=== PATIENT | male | born 1975 | race Caucasian/White ===

== ENCOUNTER 2025-04-22 08:07 | Outpatient (CLI) | payer MEDICARE, OTHER, MEDICAID, SELFPAY ==
--- OUTSIDE RECORDS SUMMARY | 2025-04-22 08:17 | XMS_ITS | Patient Health Record ---
Author Organization [facility] Address [address] [address] Care Team Providers Care Waxer Floor Name Role Phone Deangelo Marino Primary Care Provider Reason For Referral No Information Medications Medication SIG (Take, Route, Frequency, Duration) Notes Start Date End Date Status Folic Acid 1MG PO DAILY [facility] Acti ve Phenytoin Sodium Extended 100MG PO 3 TABS PO @ HS [facility] Active Pataday 1DROP OP Q 6AM FOR ITCHING [facility] Active Tylenol 325MG PO 1-2XD [facility] Activ e Bisacodyl 10MG RE PRN [facility] Acti ve Calcium Carbonate 500MG PO TID [facility] Active Lactulose 30ML PO BID [facility] Acti ve Divalproex Sodium 125MG PO 6CAPS PO BID [facility] Active ASPIRIN 81 81MG OR DAILY [facility] Act sophia Multivitamins 1CAP PO DAILY [facility] Active Problems Problem Type SNOMED Code ICD Code Onset Dates Problem Status W/U Status Risk Notes Problem 25424514 Mental retardation (F79) Active confirmed Problem 79556468 Convulsions (R56.9) Active confirmed Problem [id number] Functional quadriplegia (R53.2) Active confirmed Problem 79107907 Abnormality of gait (R26.9) Active confirmed Problem 75334702 Head injury (S09.90XA) Active confirmed Problem 965439706 Intractable epilepsy (G40.919) Active confirmed Plan Of Treatment No Information Insurance Providers Payer Name Payer Address Payer Phone Subscriber Number Group Number Insured Name Patient Relationship to Insured Coverage Start Date Coverage End Date MEDICARE PART AB [address] [place] [id number] [phone] [id number] REEMA FERNANDO Self - patient is the insured [facility] [address] [place], [place] [id number] REEMA FERNANDO Self - patient is the insured [place] [address] [address] [place], [place] [id number] REEMA FERNANDO Self - patient is the insured
--- OUTSIDE RECORDS SUMMARY | 2025-04-22 08:17 | XMS_ITS | Clinical Summary ---
Author Organization [facility] Address [address] [place] [address] Phone Care Team Providers Care Medical Insurance Biller Name Role Phone Ava Valdez APRN, MEDICAL GENETICS DIRECTOR Unavailable [phone] Alpesh Levy MD Primary Care Provider [phone] Jayleen Earl DO Unavailable Allergies Active Allergy Reactions Criticality Noted Date Comments Hydrocodone-Acetaminophen Unknown 10/17/2019 Medications cilostazol (PLETAL) 100 MG Tablet 2 times daily. 0 Active folic acid (FOLVITE) 1 MG Tablet Take 1 mg by mouth daily. Active aspirin 81 MG Chewable Tablet Take 81 mg by mouth daily. Active lactulose (CHRONULAC) 10 GM/15ML Solution Take 45 mL by mouth 2 times daily. Active divalproex (DEPAKOTE SPRINKLE) 125 MG Capsule Delayed Release Sprinkle Take by mouth. 500mg in the morning and 750mg in the evening. Active Multiple Vitamin (DAILY ABE PO) Take by mouth. Active acetaminophen (TYLENOL) 325 MG Tablet Take 325 mg by mouth every 4 hours as needed. Active diphenhydrAMINE HCl (DIPHENHYDRAMINE COUGH PO) Take by mouth. Active Misc. Devices MiscIndications:Q uadriplegia,Cereb ral palsy, unspecified type (HCC),Mild intellectual disability Power mobility device 1 Each 4 Active bacitracin-polymy shahla (POLYSPORIN) [id number] UNIT/GM Ointment APPLY TWICE DAILY TO THE AFFECTED AREA 4 Active Active Problems Problem Noted Date Diagnosed Date Elevated LFTs 07/05/2022 Cerebral palsy 10/17/2019 Mild intellectual disability 10/17/2019 Quadriplegia 10/17/2019 Nonintractable epilepsy without status epileptic us 10/17/2019 PVD (peripheral vascular disease) 10/17/2019 Gastroesophageal reflux disease without esophagi tis 10/17/2019 Hyperammonemia 10/17/2019 Resolved Problems Problem Noted Date Diagnosed Date Resolved Date WALTER (acute kidney injury) 06/22/2021 UTI (urinary tract infection) 06/22/2021 12/10/2021 Severe sepsis with acute organ dysfunction 06/22/2021 12/10/2021 Dehydration 06/22/2021 12/10/2021 Encounters Date Type Department Care Team Description [facility] [place] [address] [place] [address] Alpesh Levy MD Form Completion 03/25/20[facility] [place] [address] [place] [address] Alpesh Levy MD Need Order from Last 3 Months Immunizations Immunization Administration Dates Next Due Covid-19, Mrna, Lnp-s, Pf, 3 0 Mcg/0.3 Ml Dose ([employer]) 12/08/2020,11/17/2020 Influenza Vaccine greater than 3 yrs 08/05/2024 Influenza Vaccine, Quadrivalent, PF 07/20/2022,1 ,07/14/2020 Influenza Vaccine,unspecified Formulation 2022 Influenza Virus Vaccine, Whole Virus 07/24/1999 Influenza,Split Virus,Trivalent,Injectable,PF 06/18/2024 Pneumococcal Vaccine - 13 Valent 02/01/2018 Pneumococcal conjugate PCV20 , polysaccharide QHA963 conjugate, adjuvant, PF 12/24/2024 TD VACCINE 02/17/2004 TDAP Vaccine 02/17/2004 Td (Adult) 11/11/2015 Tuberculin Skin Test; Purifi ed Protein Derivative Solutiol 02/03/2004 Social History Tobacco Use Types Packs/Day Years Used Date Smoking Tobacco: Never Smokeless Tobacco: Never Tobacco Cessation:Counseling Given: No Alcohol Use Standard Drinks/Week Comments Never 0 (1 standard drink = 0.6 oz pur e alcohol) [facility] Utilities Answer Date Recorded In the past 12 months has th e electric, gas, oil, or water company threatened to shut off services in your home? Patient declined 12/24/2024 Social Connection and Isolation Panel Answer Date Recorded In a typical week, how many times do you talk on the phone with family, friends, or neighbors? Patient declined 12/24/2024 How often do you get togethe r with friends or relatives? Patient declined 12/24/2024 How often do you attend catholic or oriental orthodox serv ices? Patient declined 12/24/2024 Do you belong to any clubs o r organizations such as catholic groups, unions, fraternal or athletic groups, or school groups? Patient declined 12/24/2024 How often do you attend meet ings of the clubs or organizations you belong to? Patient declined 12/24/2024 Are you , , di vorced, , never , or living with a partner? Patient declined 12/24/2024 AUDIT-C Answer Date Recorded Q1: How often do you have a drink containing alc ohol? Patient declined 12/24/2024 Q2: How many drinks containi ng alcohol do you have on a typical day when you are drinking? Patient declined 12/24/2024 Q3: How often do you have si x or more drinks on one occasion? Patient declined 12/24/2024 Overall Financial Resource Strain (CARDIA) Answe r Date Recorded How hard is it for you to pa y for the very basics like food, housing, medical care, and heating? Patient declined 12/24/2024 PHQ-2 Answer Date Recorded Total Score - Questions 1-9 0 12/07 [facility] [place] [facility] Occupat ional Health - Occupational Stress Questionnaire Answer Date Recorded Do you feel stress - tense, restless, nervous, or anxious, or unable to sleep at night because your mind is troubled all the time - these days? Patient declined 12/24/2024 Exercise Vital Sign Answer Date Recorde d On average, how many days pe r week do you engage in moderate to strenuous exercise (like a brisk walk)? Patient declined On average, how many minutes do you engage in exercise at this level? Patient declined 12/24/2024 Hunger Vital Sign Answer Date Recorded Within the past 12 months, y ou worried that your food would run out before you got the money to buy more. Patient declined Within the past 12 months, t he food you bought just didn't last and you didn't have money to get more. Patient declined PRAPARE - Transportation Answer Date Re corded In the past 12 months, has l ack of transportation kept you from medical appointments or from getting medications? Patient declined 12/24/2024 In the past 12 months, has l ack of transportation kept you from meetings, work, or from getting things needed for daily living? Patient declined 12/24/2024 Housing Stability Vital Sign Answer Taco e Recorded In the last 12 months, was t here a time when you were not able to pay the mortgage or rent on time? Patient declined 12/25/19 25 Number of Times Moved in the Last Year Not on fi le 12/24/2024 At any time in the past 12 m [facility], were you homeless or living in a [place] care facility (including now)? Patient declined 12/24/2024 Sex and Gender Information Value Date Recorded Sex Assigned at Not on file Legal Sex Male 3:43 PM MUSIC EDUCATOR Gender Identity Not on file Sexual Orientation Not on file Last Filed Vital Signs Vital Sign Reading Time Taken Comments Blood Pressure 126/80 12/30/2024 9:50 AM CDT Pulse 76 12/30/2024 9:50 AM CDT Temperature 36.3 C (97.4 F) 12/30/2024 9:50 AM CDT Respiratory Rate 16 12/30/2024 9:50 AM CDT Oxygen Saturation 93% 12/24/2024 9:02 AM CDT Inhaled Oxygen Concentration - - Weight 93 kg (205 lb) 11/14/2024 4:27 PM MUSIC EDUCATOR Height 185.4 cm (6' 1) 12/24/2024 9:02 AM CDT Body Mass Index 27.05 06/18/2024 9:11 AM CDT Plan of Treatment Upcoming Encounters Date Type Department Care Team (Late st Contact Info) Description 06/25/2025 10:00 AM CDT Office Visit [facility] [place] [address] [place] [address] Alpesh Levy MD [address] [place] [address] 12/29/2025 9:00 AM CDT Office Visit [facility] - [place] [address] [place] [address] Alpesh Levy MD [address] [place] [place], [place] [id number] 12/29/2025 10:00 AM CDT Office Visit [facility] [address] [place] [address] Ava Valdez, HEEL TURNER, MEDICAL GENETICS DIRECTOR [address] [place] [address] Health Maintenance Due Date Last Done Comments Hepatitis B Immunization (1 of 3 - 19+ 3-dose series) 1993 Colonoscopy 2019 Immunochemical Fecal Occult Blood 2019 Zoster Immunization (1 of 2) 2024 Influenza Immunization (#1) 2025 1005/2024, 06/18/2024, 07/26/2023, Additional history exists Td Immunization Every 10 Years (Adults With 1 Tdap) 11/11/2025 11/11/2015, 02/17/2004, 02/17/2004 Cologuard 04/18/2026 04/18/2023 Colorectal Cancer Screening 04/18/2026 Respiratory Syncytial Virus (RSV) Immunization (Adult) (1 - 1-dose 75+ series) 2049 DTaP/Tdap/Td Immunization Discontinued 2015, 02/17/2004, 02/17/2004 Hepatitis C Virus (HCV) Screening Completed 12/21/2023 SARS-COV-2 Immunization Completed 08/05/20 24, 09/09/2021, 12/08/2020, Additional history exists Pneumococcal Immunization (50+ years) Completed 12/24/2024, 02/01/2018 Pneumococcal Immunization Combined Discontinued 12/24/2024, 02/01/2018 Human Papillomavirus (HPV) Immunization Aged Out No longer eligible based on patient's age to complete this topic Meningococcal Immunization (ACWY) Aged Out No longer eligible based on patient's age to complete this topic Rotavirus Immunization Aged Out No lo nger eligible based on patient's age to complete this topic Procedures Procedure Name Priority Date/Time Associated Diagnosis Comments PSA SCREEN 03/11/2025 12:00 AM CDT HEPATITIS C ANTIBODY Routine 12/21/2023 11:47 AM CDT Encounter for hepatitis C screening test for low risk patient COLOGUARD Routine 04/18/2023 5:30 PM CDT Encounter for screening for malignant neoplasm of colon from Last 3 Months or Most Recently Relevant to Health Maintenance Results * PSA SCREEN (03/11/2025 12:00 AM CDT) PSA SCREEN, TOTAL 0.98 SCAN 03/11/2025 us Provider Scan CHEMISTRY ORDERABLES Final Resul t SCAN * HEPATITIS C ANTIBODY (12/21/2023 11:47 AM CDT) hepatitis C antibody 0.1000 <1 S/CO 12/21/2023 11:03 PM CDT [facility] Comment: Signal/Cutoff ratio < 0.79 is Nondetected Signal/Cutoff ratio 0.80-0.99 is Grayzone Signal/Cutoff ratio > 0.99 is Detected Supplemental assays are recommended if signal/cutoff ratio is >/=1.00. Signal/cutoff ratio result >/= 5.00 is 97% predictive of positivity for recombinant immunoblot assay (RIBA) and will be reported to the [place] Department of Public Health as required. Blood Venipuncture / Unknown 12/21/2023 11:47 AM CDT 12/21/2023 11:47 AM CDT us Alpesh Levy MD CHEMISTRY ORDERABLES Helen chai Result [facility] [address] [place] [address], * COLOGUARD (04/18/2023 5:30 PM CDT) Cologuard Negative Negative [facility] Comment: NEGATIVE TEST RESULT. A negative Cologuard result indicates a low likelihood that a colorectal cancer (CRC) or advanced adenoma (adenomatous polyps with more advanced pre-malignant features) is present. The chance that a person with a negative Cologuard test has a colorectal cancer is less than 1 in 1500 (negative predictive value >99.9%) or has an advanced adenoma is less than 5.3% (negative predictive value 94.7%). These data are based on a prospective cross-sectional study of 10,000 individuals at average risk for colorectal cancer who were screened with both Cologuard and colonoscopy. (June Daniel. et al, N Engl J Med 2014;370(14):6293-1739) The normal value (reference range) for this assay is negative. COLOGUARD RE-SCREENING RECOMMENDATION: Periodic colorectal cancer screening is an important part of preventive healthcare for asymptomatic individuals at average risk for colorectal cancer. Following a negative Cologuard result, the [employer] [employer] Society and U.S. Multi-Society Task Force screening guidelines recommend a Cologuard re-screening interval of 3 years. References: [employer] Society Guideline for Colorectal Cancer Screening: https://www.cancer.org/cancer/bkvhr-pxslhz-hakkjr/surdjvoyr-rkomfjiwp-mhrffrq/ acs-recommendations.html.; Joseluis BETHEA, Luis LINDSEY, Brii FERNANDEZ, Colorectal Cancer Screening: Recommendations for Physicians and Patients from the U.S. Multi-Society Task Force on Colorectal Cancer Screening , Am J Gastroenterology 2017; 112:6908-0213. TEST DESCRIPTION: Composite algorithmic analysis of stool DNA-biomarkers with hemoglobin immunoassay. Quantitative values of individual biomarkers are not reportable and are not associated with individual biomarker result reference ranges. Cologuard is intended for colorectal cancer screening of adults of either sex, 45 years or older, who are at average-risk for colorectal cancer (CRC). Cologuard has been approved for use by the U.S. FDA. The performance of Cologuard was established in a cross sectional study of average-risk adults aged 50-84. Cologuard performance in patients ages 45 to 49 years was estimated by sub-group analysis of near-age groups. Colonoscopies performed for a positive result may find as the most clinically significant lesion: colorectal cancer [4.0%], advanced adenoma (including sessile serrated polyps greater than or equal to 1cm diameter) [20%] or non- advanced adenoma [31%]; or no colorectal neoplasia [45%]. These estimates are derived from a prospective cross-sectional screening study of 10,000 individuals at average risk for colorectal cancer who were screened with both Cologuard and colonoscopy. (June Davey et al, N Engl J Med 2014;370(14):7752-7931.) Cologuard may produce a false negative or false positive result (no colorectal cancer or precancerous polyp present at colonoscopy follow up). A negative Cologuard test result does not guarantee the absence of CRC or advanced adenoma (pre-cancer). The current Cologuard screening interval is every 3 years. ([employer] Cancer Society and U.S. Multi-Society Task Force). Cologuard performance data in a 10,000 patient pivotal study using colonoscopy as the reference method can be accessed at the following location: www.[facility]/results. Additional description of the Cologuard test process, warnings and precautions can be found at www.EQOrd.com. Stool 04/18/2023 5:30 PM CDT 04/20/2023 5:34 PM CDT us Autumn Chambers MD BODY FLUIDS & STOOLS ORDERAB LES Final Result [address] [place] [address], [place] [address] from Last 3 Months or Most Recently Relevant to Health Maintenance Insurance MEDICARE [place] Advance Directives Documents on File Type Date Recorded Patient Addictions Therapist Expl anation Guardian of Person 06/23/2021 3:00 PM Guar pamela of person 06/18/1997 POLST/POST/CT DNR 06/23/2021 8:56 AM POLST 08/06/2017 * No CPR-Comfort Focused Treatment (Latest Code Status on File) Date Activated Date Inactivated Comments 06/23/2021 6:44 AM 06/25/2021 4:03 PM No CPR - Com fort-Focused Treatment: FULL ARREST: Do Not Attempt Resuscitation. PRE-ARREST: Goal is to maximize comfort through symptom management and allow for a natural . Hospitalization is not preferred unless comfort can't be established elsewhere. Question Answer Comments Physician documentation made in notes? Yes * Full Code Date Activated Date Inactivated Comments 06/22/2021 11:53 PM 06/23/2021 6:44 AM CPR-Full Tr eatment: FULL ARREST: Attempt Resuscitation/CPR wit intubation and mechanical ventilation. PRE-ARREST: Use entire range of life support measures to stabilize the patient. Care Teams Medical Insurance Biller Relationship Specialty Start Date End Date Alpesh Levy MD [address] [place] [address] PCP - General Internal Medicine 12/19/22 Ava Valdez, HEEL TURNER, MEDICAL GENETICS DIRECTOR [address] [place] [address] Nurse Practitioner Neurology 01/04/22 Jayleen Earl DO [address] [facility] [address] Kajal Ness [address] [address] Consulting Physician Otolaryngology 12/24/24
--- OUTSIDE RECORDS SUMMARY | 2025-04-22 08:17 | XMS_ITS | Patient Health Record ---
Author Organization [facility] Address [address] [place] [address] Care Team Providers Care Forest Ranger Name Role Phone Negin Nassar Unavailable [phone] Reason For Referral No Information Medications Medication SIG (Take, Route, Frequency, Duration) Notes Start Date End Date Status Cilostazol 100 MG Oral 11/20/2019 A ctive Amoxicillin-Pot Clavulanate 875-125 MG Oral 11/20/2019 Active Divalproex Sodium 125 MG Oral 11/20/2019 Active Multivitamin Adults Oral 11/20/2019 Active Lactulose 10 GM/15ML Oral 11/20/2019 Active Immunizations Vaccine Route Administration Date Status Comme nts Hep B, adult dosage Unknown 08/06/2005 Administered Pneumococcal conjugate PCV 13 Unknown 02/09/2018 Admini stered Tetanus toxoid, adsorbed Unknown 11/11/2015 Administere d Plan Of Treatment No Information Insurance Providers Payer Name Payer Address Payer Phone Subscriber Number Group Number Insured Name Patient Relationship to Insured Coverage Start Date Coverage End Date [place] [address] [place] [address] [id number] REEMA FERNANDO Self - patient is the insured [place] [address] [address] [place] [address] [id number] REEMA FERNANDO Self - patient is the insured For Life - Medicare Supplement [address] [place] [address] [id number] REEMA FERNANDO Self - patient is the insured Medical (General) History Surgical History Surgery Date(Month/Year) Procedure on upper arm ([id number])
== END 2025-04-22 08:08 | disposition home or self-care (01) ==
PROVIDERS: PCP Internal Medicine; Visit Provider Internal Medicine
DX: H90.3 Sensorineural hearing loss, bilateral (principal); F70 Mild intellectual disabilities; G80.9 Cerebral palsy, unspecified
CPT/HCPCS: 92553; 92555; 92567